=== PATIENT | male | born 1955 | race Caucasian/White ===

== ENCOUNTER → 2022-02-26 | Outpatient (CLI) | payer MEDICARE | LOC: MRI 02-25 09:30 | DX: H90.3 Sensorineural hearing loss, bilateral (principal) | CPT/HCPCS: 36415; 70553; 82565; 84520; A9577 ==

== ENCOUNTER → 2022-04-17 | Outpatient (CLI) | payer MEDICARE | LOC: HEART 5 10:48 | DX: R00.2 Palpitations (principal) ==